=== PATIENT | male | born 1940 | race Caucasian/White ===

== ENCOUNTER → 2016-11-13 | Outpatient (CLI) | payer BC ==
[~2016-11-13] MED LIST: ASPCH81X PO; CALC200T PO; LORA10CA2 PO; MULT-506 PO; NIAC500T8 PO; NUTRTAB48 PO; OMEG10007 PO; OXYM0.0592 NAE; SIMV80TA2 PO
[2016-11-13 09:55] LABS: CALCIUM 8.5 mg/dl (8.5-10.1)
[2016-11-13 10:00] LABS: ALT/SGPT 26 U/L (12-78); AST/SGOT 15 U/L (15-37); BLOOD UREA NITROGEN 11 mg/dl (7-18); BUN/CREATININE RATIO 12.4 (10-20); CARBON DIOXIDE 25 mmol/L (21-32); CHLORIDE 110 mmol/L (98-107); CHOLESTEROL 189 mg/dl (0-200); CREATININE 0.87 mg/dl (0.60-1.40); GLUCOSE 105 mg/dl (70-99); POTASSIUM 4.2 mmol/L (3.5-5.1); SODIUM 143 mmol/L (136-145); TRIGLYCERIDES 96 mg/dl (0-150); VERY LOW DENSITY LIPOPROT CALC 19 mg/dl
[2016-11-13 10:06] LABS: CHOLESTEROL/HDL RATIO 4.1; HDL CHOLESTEROL 46 mg/dl; LDL CHOLESTEROL CALCULATED 124 mg/dl
== END | disposition home or self-care (01) ==
LOC: C.LAB1850 08:16
PROVIDERS: ATTEND Internal Medicine Cardiovascular Disease
DX: E78.00 Pure hypercholesterolemia, unspecified (principal); R73.03 Prediabetes

== ENCOUNTER → 2017-04-28 | Outpatient (CLI) | payer BC ==
[2017-04-28 09:54] LABS: ESTIMATED AVERAGE GLUCOSE 123 mg/dl; HA1C FLAG Normal (Normal)
[2017-04-28 09:55] LABS: ALT/SGPT 27 U/L (12-78); AST/SGOT 16 U/L (15-37); BLOOD UREA NITROGEN 11 mg/dl (7-18); BUN/CREATININE RATIO 12.5 (10-20); CALCIUM 8.7 mg/dl (8.5-10.1); CARBON DIOXIDE 26 mmol/L (21-32); CHLORIDE 108 mmol/L (98-107); CHOLESTEROL 200 mg/dl (0-200); GLUCOSE 109 mg/dl (70-99); POTASSIUM 4.1 mmol/L (3.5-5.1); SODIUM 141 mmol/L (136-145); TRIGLYCERIDES 115 mg/dl (0-150); VERY LOW DENSITY LIPOPROT CALC 23 mg/dl
[2017-04-28 10:00] LABS: CHOLESTEROL/HDL RATIO 4.7; HDL CHOLESTEROL 43 mg/dl; LDL CHOLESTEROL CALCULATED 134 mg/dl
== END | disposition home or self-care (01) ==
LOC: C.LAB1850 08:07
PROVIDERS: ATTEND Internal Medicine
DX: Z00.00 Encounter for general adult medical examination without abnormal findings (principal); R73.03 Prediabetes; Z86.39 Personal history of other endocrine, nutritional and metabolic disease

== ENCOUNTER → 2017-10-25 | Outpatient (CLI) | payer BC ==
[2017-10-25 10:28] LABS: ALT/SGPT 24 U/L (12-78); AST/SGOT 18 U/L (15-37); BLOOD UREA NITROGEN 12 mg/dl (7-18); CALCIUM 8.2 mg/dl (8.5-10.1); CARBON DIOXIDE 26 mmol/L (21-32); CHOLESTEROL 170 mg/dl (0-200); CREATININE 0.84 mg/dl (0.60-1.40); GLUCOSE 110 mg/dl (70-99); POTASSIUM 4.1 mmol/L (3.5-5.1); SODIUM 142 mmol/L (136-145)
[2017-10-25 10:32] LABS: LDL CHOLESTEROL CALCULATED 114 mg/dl
== END | disposition home or self-care (01) ==
LOC: C.LAB1850 08:56
PROVIDERS: ATTEND Internal Medicine
DX: E78.00 Pure hypercholesterolemia, unspecified (principal); I10 Essential (primary) hypertension; R73.03 Prediabetes

== ENCOUNTER 2023-08-01 10:11 | Inpatient (IN) ==
--- NOTE | 2023-08-01 10:32 | Emergency Department Note ---
Impression & Plan Acute hypoxic respiratory failure, COVID-19, SOB (shortness of breath) ED Provider Note NAME: WILFRED COLBERT AGE: 82 SEX: M : 1940 ARRIVES VIA: Ambulance INFORMANT: Patient ED PROVIDER(S): Carlos Macedo DO CHIEF COMPLAINT: shortness of breath HPI: Patient is an 82-year-old gentleman who presents to the ER who was a previous smoker with past medical history of hypertension and prediabetes and hyperlipidemia for shortness of breath. Symptoms started this past . Cough, congestion, and runny nose. He notes he has been using his wifes oxygen at home. Family provides additional history and notes he has been very weak and rundown. Denies any chest pain, belly pain, nausea, vomiting, or diarrhea. No dysuria, urgency, or frequency. No history of COPD or CAD. ADDITIONAL HISTORY OBTAINED: Per HPI Chronic Medical/Social Conditions Affecting Care: Per HPI PAST MEDICAL HISTORY:See Below PAST SURGICAL HISTORY:See Below FAMILY HISTORY:See Below SOCIAL HISTORY:See Below HOME MEDICATIONS:See Below ALLERGIES:See Below VITALS:See Below PHYSICAL EXAMINATION: GENERAL: Sitting up in bed, alert, ill-appearing, disheveled, moderate distress EYE EXAM: normal conjunctiva. OROPHARYNX: mucous membranes are moist NECK: supple, no nuchal rigidity, no adenopathy, non-tender LUNGS: Faint wheezing bilaterally. Normal chest wall mechanics HEART: no murmurs, S1 normal and S2 normal ABDOMEN: abdomen soft, non-tender, normo-active bowel sounds, no masses, no rebound or guarding. BACK: Back is symmetrical on inspection and there is no deformity, no midline tenderness, no CVA tenderness. SKIN: no rashes and no bruising UPPER EXTREMITIES: upper extremities are grossly normal. LOWER EXTREMITIES: No pitting edema. Calves are equal bilaterally NEURO EXAM: Normal sensorium, cranial nerves II-XII grossly intact, normal speech, no gross weakness of arms, no gross weakness of legs. MEDICAL DECISION MAKING: Patient is an 82-year-old male who presents the ER for the above-stated complaint. IV was established blood work was obtained. Labs show no significant leukocytosis or anemia. Mild thrombocytopenia at 114. BMP with mild hyponatremia at 130. LFTs was unremarkable. Troponin was negative. CRP 3.9. Pro-Kavon was normal. Patient was positive for COVID. Patient was hypoxic and remained on nasal cannula throughout his stay. Was given neb treatments. Chest x-ray with subtle infiltrates but with the unremarkable Pro-Kavon I favor this secondary to COVID. Will defer to the hospitalist. Patient was given IV fluids updated bedside and will be admitted for further workup. Consults/Care Managements Discussions: Per [facility] Triage Nursing notes reviewed. Limited review of prior medical records performed Vital Signs: reviewed and remarkable for hypoxic Differential diagnosis: Differential diagnoses includes but is not limited to pneumonia, bronchitis, COPD/Asthma exacerbation, pneumothorax, pulmonary embolism, congestive heart failure, acute coronary syndrome ER treatment provided: See below Diagnostics interpreted by me include EKG and cardiac monitoring as listed below: -Cardiac Monitoring: An order was placed for continuous cardiac monitoring. The monitor shows a rate of 101 with sinus rhythm. -ECG: Sinus tachycardia rate of 104 Left axis Right bundle branch block QTc 497 Septal Q waves -Laboratory studies:Interpreted by me as stated above in MDM and shown below. Imaging studies: Xrays: As interpreted by me: Portable AP upright 1 view of the chest shows patchy infiltrates CTs show: none Procedures:none Critical Care: I have personally spent 35 minutes of critical care time in the direct management of this patient. This includes bedside care, interpretation of diagnostic studies, and testing, discussion with consultants, patient, and family members, and other required patient management activities. This 35 minutes is in excess of all separately billable procedures. Past Med/Surg History Medical History Hypercholesterolemia Hypertension Osteoarthritis Prediabetes Venom-induced anaphylaxis Surgical History H/O knee surgery Family History Uncle Myocardial infarction Other No pertinent family history Denies family history of Ovarian cancer Prostate cancer Breast cancer Colorectal cancer Social History Smoking Status: Former smoker Tobacco Type: Cigarettes Second Hand Exposure: No; Do You Dip or Chew Tobacco: Yes (two dips a day); Hx Alcohol Use: Yes (he takes two shot a day) Alcohol type: hard liquor Alcohol Intake Frequency: 4 or More x per/Week Hx Substance Use: No Preferred Language: Bengali Communication Ability: Effective Visual Impairment: No Limitations Hearing Ability: Normal Life Consultant Required: No Beliefs That Will Affect Care: None marital status: / current occupational status: retired Feels Safe at Home: Yes Childhood Exposure to Second-Hand Smoke: Yes Dental Care, Regularly: No Physical Activity Frequency: 1-2 Times per Week Seatbelt Use: sometimes Sunscreen Use: No Allergies Allergies Allergy/AdvReac Type Severity Reaction Status Date / Time amoxicillin Allergy Severe Hives Verified 08/01/23 12:52 ampicillin Allergy Severe Hives Verified 08/01/23 12:52 tetanus toxoid, adsorbed Allergy Severe Rash, Verified 08/01/23 12:52 swelling Horse/Equine Containing Allergy Mild Unknown Unverified 08/01/23 12:52 Products Penicillins Allergy Mild Unknown Unverified 08/01/23 12:52 venom-honey bee AdvReac Bee Verified 08/01/23 12:52 stings" = head feels funny Home Meds Home Medications Medication Instructions Recorded Confirmed aspirin 81 mg tablet,delayed 81 mg PO DAILY 03/13/19 08/01/23 release (Adult Low Dose Aspirin) omega-3 fatty acids 1,000 mg 1,000 mg PO DAILY 03/13/19 08/01/23 capsule (Fish Oil Concentrate) calcium carbonate 200 mg calcium 200 mg PO BID PRN Indigestion 09/29/22 08/01/23 (500 mg) chewable tablet (Tums) diphenhydramine HCl 25 mg capsule 25 mg PO DAILY PRN Allergy Symptoms 09/29/22 08/01/23 (Benadryl) glucosamine-chondroitin 250 mg-200 2 tab PO DAILY 09/29/22 08/01/23 mg tablet (Osteo Bi-Flex) naproxen sodium 220 mg capsule 440 mg PO BID PRN Pain 09/29/22 08/01/23 (Aleve) calcium carbonate 600 mg-vitamin 2 tab PO DAILY 08/01/23 08/01/23 D3 20 mcg (800 unit) chewable tablet (Caltrate 600 plus D) Previous Rx's Medication Instructions Recorded albuterol sulfate 90 mcg/actuation 1 - 2 puff inhalation Q4H PRN 09/29/22 aerosol inhaler (ProAir HFA) shortness of breath #6.7 grams epinephrine 0.3 mg/0.3 mL 0.3 mg (0.3 mL) IM UD #1 ea 09/29/22 injection, auto-injector atorvastatin 80 mg tablet 80 mg PO QPM #90 tabs 03/24/23 pantoprazole 40 mg tablet,delayed 40 mg PO DAILY #30 tabs 06/24/23 release (Protonix) Results & Data (ED) Vital Signs Vital Signs - 24 hr 08/01/23 10:06 08/01/23 10:06 08/01/23 10:15 Temperature 36.9 C Temperature Source Oral Pulse Rate 104 H Pulse Rate from SpO2 Sensor Pulse Rhythm Regular Pulse Strength Normal Respiratory Rate 22 Respiratory Effort / Characteristics Spontaneous Spontaneous Respiratory Depth Normal Shallow Respiratory Pattern Regular Regular Blood Pressure 145/90 H Blood Pressure Mean 108 Blood Pressure Position Sitting Pulse Oximetry 96 88 L Oxygen Delivery Method Room Air Room Air Nasal Cannula Oxygen Flow Rate 0 Sepsis Recent Fever Within 48 Hours No Sepsis New/Unexplained Change in Mental Status No Sepsis Action Taken by Nursing No Action Required Oxygen Flow Rate - Titration 2 Pulse Oximetry Post Tiitration 95 08/01/23 10:17 08/01/23 10:22 08/01/23 11:00 Temperature Temperature Source Pulse Rate 111 H 107 H Pulse Rate from SpO2 Sensor Pulse Rhythm Pulse Strength Respiratory Rate 17 Respiratory Effort / Characteristics Respiratory Depth Respiratory Pattern Blood Pressure 132/76 133/71 Blood Pressure Mean 94 90 Blood Pressure Position Pulse Oximetry 95 Oxygen Delivery Method Nasal Cannula Oxygen Flow Rate 2 Sepsis Recent Fever Within 48 Hours Sepsis New/Unexplained Change in Mental Status Sepsis Action Taken by Nursing Oxygen Flow Rate - Titration Pulse Oximetry Post Tiitration 08/01/23 11:00 08/01/23 11:10 08/01/23 11:16 Temperature Temperature Source Pulse Rate 97 H 103 H Pulse Rate from SpO2 Sensor 99 H 104 H Pulse Rhythm Pulse Strength Respiratory Rate 30 H 29 H Respiratory Effort / Characteristics Respiratory Depth Respiratory Pattern Blood Pressure Blood Pressure Mean Blood Pressure Position Pulse Oximetry 95 96 95 Oxygen Delivery Method Nasal Cannula Oxygen Flow Rate 2 Sepsis Recent Fever Within 48 Hours Sepsis New/Unexplained Change in Mental Status Sepsis Action Taken by Nursing Oxygen Flow Rate - Titration Pulse Oximetry Post Tiitration 08/01/23 11:20 08/01/23 11:30 08/01/23 11:30 Temperature Temperature Source Pulse Rate 103 H 101 H Pulse Rate from SpO2 Sensor 103 H 103 H Pulse Rhythm Pulse Strength Respiratory Rate 18 18 Respiratory Effort / Characteristics Respiratory Depth Respiratory Pattern Blood Pressure 115/59 L Blood Pressure Mean 75 Blood Pressure Position Pulse Oximetry 95 94 Oxygen Delivery Method Oxygen Flow Rate Sepsis Recent Fever Within 48 Hours Sepsis New/Unexplained Change in Mental Status Sepsis Action Taken by Nursing Oxygen Flow Rate - Titration Pulse Oximetry Post Tiitration 08/01/23 11:40 08/01/23 11:50 08/01/23 12:00 Temperature Temperature Source Pulse Rate 107 H 104 H Pulse Rate from SpO2 Sensor 106 H 104 H Pulse Rhythm Pulse Strength Respiratory Rate 22 25 H Respiratory Effort / Characteristics Respiratory Depth Respiratory Pattern Blood Pressure 115/66 Blood Pressure Mean 82 Blood Pressure Position Pulse Oximetry 95 95 Oxygen Delivery Method Oxygen Flow Rate Sepsis Recent Fever Within 48 Hours Sepsis New/Unexplained Change in Mental Status Sepsis Action Taken by Nursing Oxygen Flow Rate - Titration Pulse Oximetry Post Tiitration 08/01/23 12:00 08/01/23 12:10 08/01/23 12:20 Temperature Temperature Source Pulse Rate 102 H 101 H 99 H Pulse Rate from SpO2 Sensor 98 H 101 H 99 H Pulse Rhythm Pulse Strength Respiratory Rate 19 25 H 21 Respiratory Effort / Characteristics Respiratory Depth Respiratory Pattern Blood Pressure Blood Pressure Mean Blood Pressure Position Pulse Oximetry 94 95 95 Oxygen Delivery Method Oxygen Flow Rate Sepsis Recent Fever Within 48 Hours Sepsis New/Unexplained Change in Mental Status Sepsis Action Taken by Nursing Oxygen Flow Rate - Titration Pulse Oximetry Post Tiitration Laboratory Data 08/01/23 10:20 08/01/23 10:20 Lab Results 08/01/23 Range/Units 10:20 WBC 9.80 (4.8-10.8) K/ul RBC 4.61 L (4.70-6.10) M/uL Hgb 14.3 (14.0-18.0) g/dl Hct 41.5 L (42.0-52.0) % MCV 90.0 (80.0-100.0) fL MCH 31.0 (25.0-34.0) pg MCHC 34.5 (32.0-36.0) g/dL RDW Std Deviation 42.5 (36.4-46.3) fL RDW Coeff of Shawn 12.9 (11.5-14.5) % Plt Count 114 L (130-400) K/uL MPV 8.8 L (9.4-12.4) fL Immature Gran % (Auto) 0.4 % Neut % (Auto) 81.5 % Lymph % (Auto) 6.4 % [place] % (Auto) 11.5 % Eos % (Auto) 0.0 % Baso % (Auto) 0.2 % Neut # (Auto) 7.98 H (1.40-6.50) K/uL Lymph # (Auto) 0.63 L (1.20-3.40) K/uL [place] # (Auto) 1.13 H (0.11-0.59) K/uL Eos # (Auto) 0.00 (0.00-0.50) K/uL Baso # (Auto) 0.02 (0.00-0.20) K/uL Immature Gran # (Auto) 0.04 (0.01-0.20) K/uL Sodium 130 L (136-145) mmol/L Potassium 4.1 (3.5-5.1) mmol/L Chloride 98 (98-107) mmol/L Carbon Dioxide 24 (21-32) mmol/L Anion Gap 8 (3-11) BUN 12 (6-23) mg/dl Creatinine 0.79 (0.6-1.4) mg/dl Est Cr Clr Drug Dosing 76.3 ml/min Est GFR ( Amer) 95.6 ml/min Est GFR (Non-Af Amer) 82.5 ml/min BUN/Creatinine Ratio 15.2 (10-20) Glucose 175 H (70-99(Fasting)) mg/dl Osmolality 276 L (280-300) mOsm/kg Calcium 8.1 L (8.6-10.3) mg/dl Magnesium 1.6 L (1.7-2.4) mg/dl Ferritin 339.2 (8-388) ng/ml Total Bilirubin 1.1 H (0.2-1.0) mg/dl AST 27 (13-39) U/L ALT 15 (7-52) U/L Alkaline Phosphatase 52 (34-104) U/L Troponin I High Sens 4.5 (0-20) pg/ml C-Reactive Protein 3.96 H (0-0.5) mg/dl B-Natriuretic Peptide 18 (0-100) pg/ml Total Protein 6.5 (6.0-8.3) gm/dl Albumin 3.8 (3.4-5.0) gm/dl Globulin 2.7 (2.5-4.0) gm/dl Albumin/Globulin Ratio 1.4 (0.9-2) Lipase 71 (11-82) U/L Procalcitonin 0.07 (0-0.5) ng/ml Adenovirus (PCR) Not Detected (NotDetected) B. pertussis DNA (PCR) Not Detected (NotDetected) B.parapertussis DNA PCR Not Detected (NotDetected) C. pneumoniae DNA (PCR) Not Detected (NotDetected) Coronavirus OC43 (PCR) Not Detected (NotDetected) Coronavirus HKU1 (PCR) Not Detected (NotDetected) Coronavirus 229E (PCR) Not Detected (NotDetected) SARS-CoV-2 (PCR) DETECTED A (NotDetected) Coronavirus NL63 (PCR) Not Detected (NotDetected) Human Metapneumovir PCR Not Detected (NotDetected) Influenza Type A (PCR) Not Detected (NotDetected) Influenza Type B (PCR) Not Detected (NotDetected) M. pneumoniae (PCR) Not Detected (NotDetected) Parainfluenza 1 (PCR) Not Detected (NotDetected) Parainfluenza 2 (PCR) Not Detected (NotDetected) Parainfluenza 3 (PCR) Not Detected (NotDetected) Parainfluenza 4 (PCR) Not Detected (NotDetected) RSV (PCR) Not Detected (NotDetected) Entero/Rhino (PCR) Not Detected (NotDetected) Administered Medications Albuterol (Albut/Ipratrop 3mg/0.5mg Neb 3 Ml Vial) 3 ml NEB QIDR CHULA; Protocol Stop: 08/31/23 12:49 Last Admin: 08/01/23 14:46 Dose: 3 ml Documented By: [id number] Admin: 08/01/23 12:59 Dose: 3 ml Documented By: FILIPE Insulin Aspart (Insulin Aspart Per Unit Charge) 0 units SC ACHS [facility] Stop: 08/31/23 13:14 Last Admin: 08/01/23 14:36 Dose: Not Given Documented By: FILIPE Discontinued Medications Albuterol (Albuterol 0.083% Nebu Soln 3 Ml Vial) 5 mg NEB NOW STA; Protocol Stop: 08/01/23 10:29 Last Admin: 08/01/23 10:51 Dose: 5 mg Documented By: [email or web address] Imaging Data Radiologist's Impression: Chest X-Ray 08/01/23 10:28 XR chest 1V portable CLINICAL HISTORY: Chest pain, nonspecific COMPARISON STUDY: Chest radiograph July 24, 2022. FINDINGS: Low lung volumes are unchanged. There is no pneumothorax or pleural effusion. There is mild interstitial thickening. There may be mild left midlung opacity. Moderate cardiomegaly is unchanged. IMPRESSION: 1. Cardiomegaly. Mild interstitial thickening favors pulmonary edema. Underlying interstitial lung disease would be difficult to exclude. 2. Suspected patchy left midlung opacity. This could be due to overlying soft tissue artifact however a focus of pneumonia could appear similar. Radiographic follow-up is recommended. ACT 112: Negative or not required by law. Electronically signed by: Roberto Briones M.D. 08/01/2023 10:45 AM Discharge Plan Visit Data Chief Complaint: Shortness of Breath/Dyspnea ED Provider: Carlos Macedo Discharge Problem: Acute hypoxic respiratory failure, COVID-19, SOB (shortness of breath) Discharge Instructions Interventions: ED Discharge Assessment Last Done: 08/01/23 15:40
[2023-08-01 10:46] LABS: Basophils # (auto) 0.02 K/uL (0.00-0.20); Basophils % (auto) 0.2 %; Hematocrit (blood only) 41.5 % (42.0-52.0); Hemoglobin 14.3 g/dl (14.0-18.0); Immature Granulocytes # (auto) 0.04 K/uL (0.01-0.20); Immature Granulocytes % (auto) 0.4 %; Lymphocytes # (auto) 0.63 K/uL (1.20-3.40); Lymphocytes % (auto) 6.4 %; Mean Corpuscular Hgb Conc 34.5 g/dL (32.0-36.0); Mean Platelet Volume 8.8 fL (9.4-12.4); Monocytes # (auto) 1.13 K/uL (0.11-0.59); Monocytes % (auto) 11.5 %; Neutrophils # (auto) 7.98 K/uL (1.40-6.50); Neutrophils % (auto) 81.5 %; Platelet Count 114 K/uL (130-400); RDW Coefficient of Variation 12.9 % (11.5-14.5); RDW Standard Deviation 42.5 fL (36.4-46.3); Red Blood Count 4.61 M/uL (4.70-6.10)
--- NOTE | 2023-08-01 10:47 | XRay Report ---
XR chest 1V portable CLINICAL HISTORY: Chest pain, nonspecific COMPARISON STUDY: Chest radiograph July 24, 2022. FINDINGS: Low lung volumes are unchanged. There is no pneumothorax or pleural effusion. There is mild interstitial thickening. There may be mild left midlung opacity. Moderate cardiomegaly is unchanged. IMPRESSION: 1. Cardiomegaly. Mild interstitial thickening favors pulmonary edema. Underlying interstitial lung di sease would be difficult to exclude. 2. Suspected patchy left midlung opacity. This could be due to overlying soft tissue artifact however a focus of pneumonia could appear similar. Radiographic follow-up is recommended. ACT 112: Negative or not required by law. Electronically signed by: Roberto Briones M.D. 08/01/2023 10:45 AM
[2023-08-01] MEDS: ALBUTEROL 0.083% NEBU SOLN 3 ML VIAL NEB STA (10:51)
[2023-08-01 11:30] LABS: Albumin Globulin Ratio 1.4 (0.9-2); Albumin Level 3.8 gm/dl (3.4-5.0); BUN Creatinine Ratio 15.2 (10-20); Bilirubin,Total 1.1 mg/dl (0.2-1.0); Calcium 8.1 mg/dl (8.6-10.3); Creatinine Clr Calc Pharmacy 76.3 ml/min; Est GFR (African American) 95.6 ml/min; Est GFR (Non-African American) 82.5 ml/min; Globulin 2.7 gm/dl (2.5-4.0); Potassium 4.1 mmol/L (3.5-5.1); Total Protein 6.5 gm/dl (6.0-8.3); Troponin I High Sensitivity 4.5 pg/ml (0-20)
[2023-08-01 12:04] LABS: Adenovirus PCR Not Detected (NotDetected); Bordetella parapertussis PCR Not Detected (NotDetected); Bordetella pertussis PCR Not Detected (NotDetected); Chlamydia pneumoniae PCR Not Detected (NotDetected); Coronavirus 229E PCR Not Detected (NotDetected); Coronavirus CoV-2 (COVID19)PCR DETECTED (NotDetected); Coronavirus HKU1 PCR Not Detected (NotDetected); Coronavirus NL63 PCR Not Detected (NotDetected); Coronavirus OC43PCR Not Detected (NotDetected); Human Metapneumovirus PCR Not Detected (NotDetected); Influenza A PCR Not Detected (NotDetected); Influenza B PCR Not Detected (NotDetected); Mycoplasma pneumoniae PCR Not Detected (NotDetected); Parainfluenza Virus 1 PCR Not Detected (NotDetected); Parainfluenza Virus 2 PCR Not Detected (NotDetected); Parainfluenza Virus 3 PCR Not Detected (NotDetected); Parainfluenza Virus 4 PCR Not Detected (NotDetected); Respiratory Syncytial VirusPCR Not Detected (NotDetected); Rhinovirus/Enterovirus PCR Not Detected (NotDetected)
--- NOTE | 2023-08-01 12:26 | History & Physical Report ---
Date of Service August 01, 2023 Assessment & Plan (1) Hypoxia: Plan: -Admit to med/tele on pulse oximetry -Currently hemodynamically stable and stable on 2L NC but without respiratory distress -Presented to the ED with 4 days of progressive congestion, non-productive cough, SOB, and generalized weakness -Noted to be hypoxic on arrival at 88% on RA -No hx of COPD or home O2 use -Noted to be covid 19 + -CXR showing cardiomegaly, mild interstitial pulmonary edema, and left lower lobe opacity suspicious for possible pneumonia -On exam he does have BL crackles and expiratory wheezing -Will obtain BNP, procal, CRP and ferritin on admission -Will wait to start abx until Procal is back -Continue incentive spirometry, flutter therapy -Start QID DuoNebs, prn O2 to keep SpO2 at or above 94% -Q12H Guaifenesin -SQ lovenox for DVT ppx -HH/DMII diet -AM CBC, CMP, mag, PT/INR (2) COVID-19: Plan: -Positive on biofire today -While he is hypoxic, we will wait for the rest of our workup to determine if we need to start steroids -Obtaining procal, CRP, ferritin -If CRP is elevated we will beging steroids as Covid 19 is likely contributing to his hypoxia -If CRP is negative we will likely hold steroids for now and continue to treat his other sources of hypoxia -Rest of care per hypoxia (3) Hyponatremia: Plan: -Sodium of 131 today -Patient reports decreased intake of solids with increased water intake over the past 4 days -Is not on diuretics and is not significantly volume overloaded -Likely caused by decreased sodium intake and increased free water intake -Will start a free water restriction and obtain serum/urine osmolality and urine sodium for further evaluation -Will treat based on workup results -Monitor am electrolytes (4) Thrombocytopenia: Plan: -Platelets of 114 today -No signs of bleeding -AST and ALT are WNL -Likely due to acute viral infection -Monitor daily CBC (5) Bifascicular block: Plan: -Noted on ECG today -Noted to previously have a hx of RBBB on previous ECG's -He denies any recent syncope -Continue to monitor on tele (6) Generalized weakness: Plan: -Likely due to his acute illness and decreased PO intake -Non focal neuro exam -Fall precautions, aspiration precautions -PT/OT consults placed (7) Hypocalcemia: Plan: -Calcium of 8.1 on CMP -Will obtain ionized calcium prior to treating -Monitor am calcium level (8) SOB (shortness of breath): Plan: -Likely multifactorial including Covid 19, possible LLL pneumonia, and mild pulmonary edema on CXR today -Low suspicion for PE at this time has he has been without chest discomfort and hemodynamically stable -High sen trop is WNL and ECG is without acute ST segment or T-wave changes, low suspicion for ACS -Will follow procal, BNP, CRP, and ferritin -Rest of care per hypoxia (9) Hypertension: Plan: -Stable -Not on antihypertensives at home -Continue to monitor (10) Prediabetes: Plan: -Last Hgb A1c in March of 2023 was 5.9 -Patient was noted to be hyperglycemic at 175 on arrival today -For now we will monitor BSG ACHS and start a CF of 50 -Will obtain Hgb A1c tomorrow morning -If patient were to be start on steroids will likely need to escalate his glycemic control regimen -HH/DMII diet Plan The patient was discussed with Dr. Rodriguez at the time of the admission History of Present Illness Chief Complaint: Progressive SOB Primary Care Provider: Rich Mancini MD Ernie is an 82 year old male with a PMH significant for HTN, RBBB, hyperlipidemia, and pre-diabetes who presented to the [facility] ED on 08/01/23 with a chief complaint of progressive SOB over the past 4 days. He was noted to be hypoxic at 88% on RA and tachycardic at 107 BPM but otherwise stable. Labs were significant for a platelet count of 114, lymphocyte count of 0.63, corrected sodium of 175, calcium of 8.1, total bili of 1.1, and full respiratory biofire positive for SARS-CoV-2. Chest xray was read as "1. Cardiomegaly. Mild interstitial thickening favors pulmonary edema. Underlying interstitial lung disease would be difficult to exclude. 2. Suspected patchy left midlung opacity. This could be due to overlying soft tissue artifact however a focus of pneumonia could appear similar. Radiographic follow-up is recommended.". Prior to admission the patient was given an albuterol treatment. At the time of the exam the patient was sitting in bed in no acute distress with his daughters sitting bedside, history was obtained from all. He states that his symptoms of increased congestion, non-productive cough, and increased SOB began on 07/29/23. Symptoms progressed to the point that he was much weaker this am than his baseline. They deny the patient having recent fever or chills. When asked, the patient denies chest pain, hemoptysis, abd pain, nausea, vomiting, diarrhea, dysuria, hematuria, melena, increased LE swelling, and rece nt trauma. He has not been eating as many solid foods over the past 4 days but has been drinking "lots" of water. He did think that the albuterol treatment he received prior to admission improved but didn't resolve his symptoms. We discussed code status, he is a DNR/DNI and would want his Daughters to make medical decisions for him if he cannot make them himself. Please refer to Dr. Rodriguez's attestation for any changes to the treatment plan Allergies Allergy/AdvReac Type Severity Reaction Status Date / Time amoxicillin Allergy Severe Hives Verified 08/01/23 12:52 ampicillin Allergy Severe Hives Verified 08/01/23 12:52 tetanus toxoid, adsorbed Allergy Severe Rash, Verified 08/01/23 12:52 swelling Horse/Equine Containing Allergy Mild Unknown Unverified 08/01/23 12:52 Products Penicillins Allergy Mild Unknown Unverified 08/01/23 12:52 venom-honey bee AdvReac Bee Verified 08/01/23 12:52 stings" = head feels funny Home Medications Medication Instructions Recorded Confirmed Type aspirin 81 mg tablet,delayed 81 mg PO DAILY 03/13/19 08/01/23 History release (Adult Low Dose Aspirin) omega-3 fatty acids 1,000 mg 1,000 mg PO DAILY 03/13/19 08/01/23 History capsule (Fish Oil Concentrate) albuterol sulfate 90 mcg/actuation 1 - 2 puff inhalation Q4H PRN 09/29/22 08/01/23 Rx aerosol inhaler (ProAir HFA) shortness of breath #6.7 grams calcium carbonate 200 mg calcium 200 mg PO BID PRN Indigestion 09/29/22 08/01/23 History (500 mg) chewable tablet (Tums) diphenhydramine HCl 25 mg capsule 25 mg PO DAILY PRN Allergy Symptoms 09/29/22 08/01/23 History (Benadryl) epinephrine 0.3 mg/0.3 mL 0.3 mg (0.3 mL) IM UD #1 ea 09/29/22 08/01/23 Rx injection, auto-injector glucosamine-chondroitin 250 mg-200 2 tab PO DAILY 09/29/22 08/01/23 History mg tablet (Osteo Bi-Flex) naproxen sodium 220 mg capsule 440 mg PO BID PRN Pain 09/29/22 08/01/23 History (Aleve) atorvastatin 80 mg tablet 80 mg PO QPM #90 tabs 03/24/23 08/01/23 Rx pantoprazole 40 mg tablet,delayed 40 mg PO DAILY #30 tabs 06/24/23 08/01/23 Rx release (Protonix) calcium carbonate 600 mg-vitamin 2 tab PO DAILY 08/01/23 08/01/23 History D3 20 mcg (800 unit) chewable tablet (Caltrate 600 plus D) Past Med/Surg History Medical History Hypercholesterolemia Hypertension Osteoarthritis Prediabetes Venom-induced anaphylaxis Surgical History H/O knee surgery Family History Uncle Myocardial infarction Other No pertinent family history Denies family history of Ovarian cancer Prostate cancer Breast cancer Colorectal cancer Social History Smoking Status: Former smoker Tobacco Type: Cigarettes Second Hand Exposure: No; Do You Dip or Chew Tobacco: Yes (two dips a day); Hx Alcohol Use: Yes Alcohol type: hard liquor Alcohol Intake Frequency: 4 or More x per/Week Hx Substance Use: No Preferred Language: Cook Islander Communication Ability: Effective Visual Impairment: No Limitations Hearing Ability: Normal Gas Brazer Required: No Beliefs That Will Affect Care: None marital status: / Current Living Situation: Alone Current Living Situation Comment: Patient states he lives alone, but also states he used his 's home O2 current occupational status: retired Other Information That Helps Us Care for You: No Feels Safe at Home: Yes Safety Concerns: Feels Safe At This Time Childhood Exposure to Second-Hand Smoke: Yes Dental Care, Regularly: No Physical Activity Frequency: 1-2 Times per Week Seatbelt Use: sometimes Sunscreen Use: No Assistive Devices: None Physical Exam Physical Exam: Physical Exam: General: In no acute distress, stated age, non-toxic appearing HEENT: Normocephalic, atraumatic, no scleral icterus, pupils around round, symmetrical, and reactive to light, dry mucus membranes, negative JVD, trachea midline, no thyromegaly Chest/Pulm: No respiratory distress, symmetrical chest expansion, crackles noted in the BL lower lung rapp with expiratory wheezing in the BL mid and upper lung rapp Cardiac: RRR, no murmurs noted Abdomen: Negative for ascites and bruising, normoactive bowel sounds, soft, non-tender to palpation throughout Musculoskeletal: Symmetrical and without signs of acute trauma, upper and lower extremities with full ROM, no atrophy, spasticity, or flaccidity Extremities: Radial, dorsalis pedis, and posterior tibial pulses are intact and symmetrical, no edema noted in the BL LE's Skin: Warm, dry, no rashes , lesions, or scars noted Neuro: Alert and oriented to person, place, month, year, and president, no focal defects, no tremors noted Psych: No acute distress, calm and cooperative during the exam Results & Data Results & Data Vital Signs (Past 12 Hours) Vital Signs Temp Pulse Resp BP Pulse Ox O2 Del Method O2 Flow Rate 08/01/23 11:16 95 Nasal Cannula 2 08/01/23 10:22 107 H 08/01/23 10:17 111 H 17 132/76 95 Nasal Cannula 2 08/01/23 10:15 88 L Nasal Cannula 0 08/01/23 10:06 Room Air 08/01/23 10:06 36.9 C 104 H 22 145/90 H 96 Room Air Laboratory Results Abnormal lab results 08/01/23 Range/Units 10:20 RBC 4.61 L (4.70-6.10) M/uL Hct 41.5 L (42.0-52.0) % Plt Count 114 L (130-400) K/uL MPV 8.8 L (9.4-12.4) fL Neut # (Auto) 7.98 H (1.40-6.50) K/uL Lymph # (Auto) 0.63 L (1.20-3.40) K/uL Kay # (Auto) 1.13 H (0.11-0.59) K/uL Sodium 130 L (136-145) mmol/L Glucose 175 H (70-99(Fasting)) mg/dl Calcium 8.1 L (8.6-10.3) mg/dl Total Bilirubin 1.1 H (0.2-1.0) mg/dl SARS-CoV-2 (PCR) DETECTED A (NotDetected) Diagnostic Findings Chest X-Ray 08/01/23 10:28 XR chest 1V portable CLINICAL HISTORY: Chest pain, nonspecific COMPARISON STUDY: Chest radiograph July 24, 2022. FINDINGS: Low lung volumes are unchanged. There is no pneumothorax or pleural effusion. There is mild interstitial thickening. There may be mild left midlung opacity. Moderate cardiomegaly is unchanged. IMPRESSION: 1. Cardiomegaly. Mild interstitial thickening favors pulmonary edema. Underlying interstitial lung disease would be difficult to exclude. 2. Suspected patchy left midlung opacity. This could be due to overlying soft tissue artifact however a focus of pneumonia could appear similar. Radiographic follow-up is recommended. ACT 112: Negative or not required by law. Electronically signed by: Roberto Briones M.D. 08/01/2023 10:45 AM ECG Additional Comments: sinus tachycardia with new bifasicular block Code Status & VTE Plan Code Status DNR/DNI Supervising Physician Co-Signing Physician Notes I personally saw and examined the patient. I verified all newman points and agree with Ricardo Edmondson PA-C with the following exceptions and/or additions: 82 year old male presents to the ER with shortness of breath and hypoxia. Feeling much improved since admission and placed on oxygen. He is mainly concerned about the Superbowl currently. Coughing up thick sputum. Generalized weakness. Diarrhea today. O/E A&Ox3, HS RRR, no murmurs, No respiratory distress, Chest rhonchi throughout, no wheezing, Abdo SNT, no CVA tenderness A/P COVID / hypoxia - procalcitonin negative, sputum culture pending but suspect just COVID rather than bacterial. Dexamethasone + Remdesivir recommend. PG Care Time/CCT Total # of Minutes Spent Total Time Spent with Patient: Total time spent is greater than 50% in coordination of care (as documented) at patient's floor/unit and/or counseling patient: [place] [address] INT INP/OBS CARE MIN Patient Type Established Medical Decision Making High Complexity Diagnoses Hypoxia R09.02 COVID-19 U07.1 Hyponatremia E87.1 Thrombocytopenia D69.6 Bifascicular block I45.2 Generalized weakness R53.1 Hypocalcemia E83.51 SOB (shortness of breath) R06.02 Hypertension I10 Prediabetes R73.03
[2023-08-01] MEDS ORDERED: GLUCOSE 10 TAB/TUBE PO PRN (12:58)
[2023-08-01] MEDS ORDERED: GLUCAGON FOR INJ 1 MG VIAL SQ PRN (12:58)
[2023-08-01] MEDS ORDERED: CARBOHYDRATES FOR HYPOGLYCEMIA PO PRN (12:58)
[2023-08-01] MEDS ORDERED: DEXTROSE 50% 50 ML SYRINGE IV PRN (12:58)
[2023-08-01] MEDS ORDERED: GLUCOSE 40% GEL 15 GM TUBE PO PRN (12:58)
[2023-08-01] MEDS: ALBUT/IPRATROP 3MG/0.5MG NEB 3 ML VIAL NEB SCH (12:59)
[2023-08-01 13:17] LABS: Magnesium 1.6 mg/dl (1.7-2.4)
[2023-08-01 13:23] LABS: C Reactive Protein 3.96 mg/dl (0-0.5)
[2023-08-01 13:42] LABS: Ferritin 339.2 ng/ml (8-388)
[2023-08-01] MEDS: INSULIN ASPART PER UNIT CHARGE SC SCH (14:36)
[2023-08-01] MEDS ORDERED: STAT IV/IM STA (15:16)
[2023-08-01] MEDS: DEXAMETHASONE SOD INJ 4 MG/ML VIAL IV STA (15:59)
[2023-08-01] MEDS: CALCIUM GLUCONATE 10% 1,000 MG in SODIUM CHLOR 0.9% MINI-B 50 ML IV ONE (15:59)
[2023-08-01] MEDS: MAGNESIUM SULFATE / D5W 1 GM/100 ML BAG IV SCH (16:21)
[2023-08-01 16:26] LABS: Appearance Urine Clear (Clear); Bilirubin Urine Negative (Negative); Blood Urine Negative (Negative); Color Urine Yellow; Glucose Urine UA Negative (Negative); Ketones Urine Negative (Negative); Leukocyte Esterase Urine Negative (Negative); Nitrite Urine Negative (Negative); Protein Urine Negative (Negative); Specific Gravity Urine 1.017 (1.000-1.030); Urobilinogen Urine Negative (Negative); pH Urine 6.5 (4.5-7.5)
[2023-08-01] MEDS: SODIUM CHLORIDE 0.9% 1,000 ML IV SCH ×2 (17:16→17:17)
[2023-08-01] MEDS: REMDESIVIR 200 MG in SODIUM CHLORIDE 0.9% 210 ML IV ONE (17:58)
[2023-08-01] MEDS: guaiFENesin 600 MG TABCR PO SCH (21:09)
[2023-08-01] MEDS: ATORVASTATIN 40 MG TAB PO SCH (21:09)
[2023-08-01] MEDS: ENOXAPARIN INJ 40 MG/0.4 ML SYR SQ SCH (21:09)
[2023-08-02 06:20] LABS: Basophils # (auto) 0.01 K/uL (0.00-0.20); Basophils % (auto) 0.1 %; Hematocrit (blood only) 38.8 % (42.0-52.0); Hemoglobin 13.5 g/dl (14.0-18.0); Immature Granulocytes # (auto) 0.05 K/uL (0.01-0.20); Immature Granulocytes % (auto) 0.5 %; Lymphocytes # (auto) 0.65 K/uL (1.20-3.40); Lymphocytes % (auto) 6.5 %; Mean Corpuscular Hemoglobin 31.1 pg (25.0-34.0); Mean Corpuscular Hgb Conc 34.8 g/dL (32.0-36.0); Mean Corpuscular Volume 89.4 fL (80.0-100.0); Monocytes # (auto) 0.54 K/uL (0.11-0.59); Monocytes % (auto) 5.4 %; Neutrophils % (auto) 87.5 %; Platelet Count 118 K/uL (130-400); RDW Standard Deviation 42.5 fL (36.4-46.3); Red Blood Count 4.34 M/uL (4.70-6.10); White Blood Count 10.05 K/ul (4.8-10.8)
[2023-08-02 06:39] LABS: Albumin Globulin Ratio 1.3 (0.9-2); Albumin Level 3.5 gm/dl (3.4-5.0); BUN Creatinine Ratio 18.2 (10-20); Bilirubin,Total 0.6 mg/dl (0.2-1.0); Creatinine Clr Calc Pharmacy 91.4 ml/min; Est GFR (African American) 102.9 ml/min; Est GFR (Non-African American) 88.8 ml/min; Globulin 2.7 gm/dl (2.5-4.0); Potassium 4.7 mmol/L (3.5-5.1); Total Protein 6.2 gm/dl (6.0-8.3)
[2023-08-02 06:53] LABS: INR 1.1 (0.9-1.1); Prothrombin Time 11.5 Seconds (9.0-12.0)
[2023-08-02 07:39] LABS: Estimated Average Glucose 137 mg/dl; Hemoglobin A1C 6.4 % (4.5-5.6)
[2023-08-02] MEDS: PANTOprazole 40 MG TAB PO SCH (08:32)
[2023-08-02] MEDS: ASPIRIN 81 MG ECTAB PO SCH (08:32)
[2023-08-02] MEDS: dexAMETHasone 6 MG in SYRINGE 0 ML IV SCH (08:33)
[2023-08-02] MEDS ORDERED: DEXAMETHASONE SOD INJ 4 MG/ML VIAL IV SCH (09:00)
[2023-08-02 09:05] LABS: Magnesium 2.2 mg/dl (1.7-2.4)
[2023-08-02] MEDS: REMDESIVIR 100 MG in SODIUM CHLORIDE 0.9% 230 ML IV SCH (12:49)
--- NOTE | 2023-08-02 13:08 | Hospitalist Progress Note ---
Date of Service August 02, 2023 Assessment & Plan (1) COVID-19: Plan: -Positive on biofire, onset of symptoms 07/28 - Currently on 2L NC, wean as able. SpO2 goal > 94% - Continue dexamethasone and remdesivir (first day 08/01) - CXR: cardiomegaly, mild interstitial pulmonary edema, and left lower lobe opacity suspicious for possible pneumonia - negative procal, improvement with treatment for COVID. Will monitor oxygen needs, low threshold for repeat CXR - Continue IS and flutter valve - PRN duonebs - Guaifenesin q12 - PT/OT (2) Hyponatremia: Plan: -Sodium of 131 on admission, likely by increased free water with decreased Na intake - FR 1800mL - Recheck this am was 139 (3) Thrombocytopenia: Plan: -Platelets of 114 on admission, without signs of bleeding -AST and ALT are WNL -Likely due to acute viral infection -today increased to 118 - trend CBC (4) Bifascicular block: Plan: -Noted on ECG on admission -Noted to previously have a hx of RBBB on previous ECG's -He denies any recent syncope -Continue to monitor on tele (5) Generalized weakness: Plan: -Likely due to his acute illness and decreased PO intake -Fall precautions -PT/OT consults placed (6) Hypocalcemia: Plan: -Calcium of 8.1 on CMP -Will obtain ionized calcium prior to treating -Monitor am calcium level (7) Prediabetes: Plan: -Last Hgb A1c in March of 2023 was 5.9, recheck 08/02 was 6.4 -BSG ACHS and start a CF of 50 - Monitor for tighter control given steroid use Plan Dispo: continued inpatient stay DVT proh: Lovenox Daughter updated at bedside Admission and Anticipated Discharge Date Admission Date: August 01, 2023 Subjective Patient sitting in bed eating lunch. States that he feels much better than yesterday. Reports living at home alone, does have a walker but does not use it. Is currently requiring oxygen but does not feel short of breath. States his cough has been more productive today, coughing up yellow phlegm. Denies chest pain. Good appetite, moving bowels Tele - SR with IVCD 60s Review of Systems Review of Systems: All systems reviewed & are unremarkable except as noted in Subjective Physical Exam Physical Exam: General: NAD, VS as above Resp: normal respiratory effort, expiratory wheeze worse in bases CV: RRR, no murmur, Abd: normal bowel sounds, non tender, no hepatosplenomegaly Extremities: Moves all extremities, no edema Neuro: A&O x3, Results & Data Results & Data Vital Signs (Past 12 Hours) Vital Signs Temp Pulse Pulse Resp BP BP Pulse Ox 08/02/23 11:42 36.7 C 59 L 18 110/71 96 08/02/23 10:56 08/02/23 09:43 68 08/02/23 09:08 36.8 C 65 18 121/77 97 08/02/23 07:28 54 L 08/02/23 03:00 56 L 20 102/64 94 08/02/23 02:00 57 L 18 120/73 97 08/02/23 01:00 60 17 118/66 97 O2 Del Method O2 Flow Rate 08/02/23 11:42 Nasal Cannula 08/02/23 10:56 Nasal Cannula 2 08/02/23 09:43 08/02/23 09:08 Nasal Cannula 2 08/02/23 07:28 08/02/23 03:00 Nasal Cannula 3 08/02/23 02:00 Nasal Cannula 3 08/02/23 01:00 Nasal Cannula 3 Laboratory Results CBC, chemistry, hemoglobin A1c reviewed Diagnostic Findings Chest x-ray reviewed PG Care Time/CCT Total # of Minutes Spent Total Time Spent with Patient: Total time spent is greater than 50% in coordination of care (as documented) at patient's floor/unit and/or counseling patient: Coding Level of Care Code 06398 SUB INP/OBS CARE 2/35MIN Diagnoses COVID-19 U07.1 Hyponatremia E87.1 Thrombocytopenia D69.6 Bifascicular block I45.2 Generalized weakness R53.1 Hypocalcemia E83.51 Prediabetes R73.03
[2023-08-02] MEDS: ALBUT/IPRATROP 3MG/0.5MG NEB 3 ML VIAL NEB PRN (13:18)
--- NOTE | 2023-08-02 19:07 | Electrocardiogram Report ---
Test Reason : Blood Pressure : / mmHG Vent. Rate : 104 BPM Atrial Rate : 104 BPM P-R Int : 154 ms QRS Dur : 144 ms QT Int : 378 ms P-R-T Axes : 023 -48 004 degrees QTc Int : 497 ms Sinus tachycardia Right bundle branch block Left anterior fascicular block Bifascicular block Minimal voltage criteria for LVH, may be normal variant ( R in aVL ) Abnormal ECG When compared with ECG of 05-DEC-2003 12:00, Vent. rate has increased BY 44 BPM T wave inversion now evident in Anterior leads Confirmed by Anselmo Ellsworth ([id number]) on 08/02/2023 7:07:24 PM Referred By: REFERRED SELF Confirmed By:Anselmo Ellsworth
[2023-08-03 05:24] LABS: Basophils # (auto) 0.02 K/uL (0.00-0.20); Basophils % (auto) 0.2 %; Hematocrit (blood only) 38.5 % (42.0-52.0); Immature Granulocytes # (auto) 0.04 K/uL (0.01-0.20); Immature Granulocytes % (auto) 0.4 %; Lymphocytes # (auto) 1.01 K/uL (1.20-3.40); Lymphocytes % (auto) 9.2 %; Mean Corpuscular Hemoglobin 30.4 pg (25.0-34.0); Mean Corpuscular Hgb Conc 33.8 g/dL (32.0-36.0); Mean Corpuscular Volume 90.2 fL (80.0-100.0); Mean Platelet Volume 9.6 fL (9.4-12.4); Monocytes # (auto) 1.04 K/uL (0.11-0.59); Monocytes % (auto) 9.5 %; Neutrophils # (auto) 8.81 K/uL (1.40-6.50); Neutrophils % (auto) 80.7 %; Platelet Count 123 K/uL (130-400); RDW Coefficient of Variation 13.1 % (11.5-14.5); RDW Standard Deviation 43.2 fL (36.4-46.3); Red Blood Count 4.27 M/uL (4.70-6.10); White Blood Count 10.92 K/ul (4.8-10.8)
[2023-08-03 05:44] LABS: Albumin Globulin Ratio 1.5 (0.9-2); Albumin Level 3.5 gm/dl (3.4-5.0); BUN Creatinine Ratio 28.6 (10-20); Bilirubin,Total 0.6 mg/dl (0.2-1.0); Calcium 7.8 mg/dl (8.6-10.3); Creatinine Clr Calc Pharmacy 95.8 ml/min; Est GFR (African American) 104.9 ml/min; Est GFR (Non-African American) 90.5 ml/min; Globulin 2.4 gm/dl (2.5-4.0); Potassium 4.2 mmol/L (3.5-5.1); Total Protein 5.9 gm/dl (6.0-8.3)
[2023-08-03] MEDS: ACETAMINOPHEN 325 MG TAB PO PRN (09:21)
--- NOTE | 2023-08-03 10:51 | XRay Report ---
XR chest 1V portable CLINICAL HISTORY: COVID, ?pna TECHNIQUE: Single frontal radiograph of the chest was obtained. Comparison: Comparison is made to chest radiograph 08/01/2023 FINDINGS: No lines and tubes are seen. Cardiomegaly is noted. The aortic arch is calcified. Interstitial thicke girish and left greater than right opacities are similar to prior exam. Possible small left pleural eff usion. IMPRESSION: Redemonstration of interstitial thickening compatible pulmonary edema and airspace opacity which may represent pneumonia. A left effusion cannot be excluded. ACT 112: Negative or not required by law. Electronically signed by: Rio Graham M.D. 08/03/2023 10:50 AM
--- NOTE | 2023-08-03 14:35 | Hospitalist Progress Note ---
Date of Service August 03, 2023 Assessment & Plan (1) COVID-19: Plan: Possible pneumonia due to Covid 19 -Positive on biofire, onset of symptoms 07/28 - Currently on 2L NC, wean as able. SpO2 goal > 94% - Continue dexamethasone and remdesivir (first day 08/01) - 08/01 CXR: cardiomegaly, mild interstitial pulmonary edema, and left lower lobe opacity suspicious for possible pneumonia - Continue IS and flutter valve - PRN duonebs - Guaifenesin q12 - PT/OT Patient with continued O2 needs. CXR repeated 08/03 and stable, afebrile, sputum culture with normal efra and oxygen demands stable. Will hold off on antibiotics for now. - AM CRP (2) Hyponatremia: Plan: -Sodium of 131 on admission, likely by increased free water with decreased Na intake - FR 1800mL - Now 134, AM BMP (3) Thrombocytopenia: Plan: -Platelets of 114 on admission, without signs of bleeding -AST and ALT are WNL -Likely due to acute viral infection -today increased to 123 - trend CBC (4) Bifascicular block: Plan: -Noted on ECG on admission -Noted to previously have a hx of RBBB on previous ECG's -He denies any recent syncope -Continue to monitor on tele (5) Generalized weakness: Plan: -Likely due to his acute illness and decreased PO intake -Fall precautions -PT/OT consults placed - recommend home health at discharge (6) Hypocalcemia: Plan: -Calcium 7.8, 8.2 when corrected for albumin - Currently asymptomatic - Will continue to trend (7) Prediabetes: Plan: -Last Hgb A1c in March of 2023 was 5.9, recheck 08/02 was 6.4 -BSG ACHS and CF decreased to 40 - Monitor for tighter control given steroid use Plan Dispo: continued inpatient stay DVT proh: Lovenox Admission and Anticipated Discharge Date Admission Date: August 01, 2023 Subjective patient sitting in bed, has been ambulating in the room independently. Moving bowels. States that he has gotten shortness of breath with activity. Continues with productive cough. Good appetite. Denies chest pain Feliciano SB/SR 50-60s with IVCD Review of Systems Review of Systems: All systems reviewed & are unremarkable except as noted in HPI & below Physical Exam Physical Exam: General: NAD, VS as above Resp: normal respiratory effort, expiratory wheeze worse in bases CV: RRR, no murmur, Abd: normal bowel sounds, non tender, no hepatosplenomegaly Extremities: Moves all extremities, no edema Neuro: A&O x3, Results & Data Results & Data Vital Signs (Past 12 Hours) Vital Signs Temp Pulse Pulse Resp BP Pulse Ox O2 Del Method 08/03/23 12:35 36.5 C 68 18 103/68 94 Nasal Cannula 08/03/23 11:15 Nasal Cannula 08/03/23 08:41 36.4 C L 56 L 16 132/79 96 Nasal Cannula 08/03/23 07:19 50 L 08/03/23 03:24 36.6 C 60 18 113/69 97 Room Air O2 Flow Rate 08/03/23 12:35 2 08/03/23 11:15 1 08/03/23 08:41 2 08/03/23 07:19 08/03/23 03:24 Laboratory Results CBC and chemistry reviewed PG Care Time/CCT Total # of Minutes Spent Total Time Spent with Patient: Total time spent is greater than 50% in coordination of care (as documented) at patient's floor/unit and/or counseling patient: Coding Level of Care Code 90013 SUB INP/OBS CARE 3/50MIN Diagnoses COVID-19 U07.1 Hyponatremia E87.1 Thrombocytopenia D69.6 Bifascicular block I45.2 Generalized weakness R53.1 Hypocalcemia E83.51 Prediabetes R73.03
[2023-08-04 05:35] LABS: Albumin Globulin Ratio 1.4 (0.9-2); Albumin Level 3.3 gm/dl (3.4-5.0); BUN Creatinine Ratio 32.8 (10-20); Bilirubin,Total 0.5 mg/dl (0.2-1.0); C Reactive Protein 2.65 mg/dl (0-0.5); Calcium 7.4 mg/dl (8.6-10.3); Creatinine Clr Calc Pharmacy 94.4 ml/min; Est GFR (African American) 104.2 ml/min; Est GFR (Non-African American) 89.9 ml/min; Globulin 2.4 gm/dl (2.5-4.0); Potassium 4.2 mmol/L (3.5-5.1); Total Protein 5.7 gm/dl (6.0-8.3)
[2023-08-04 05:41] LABS: Basophils # (auto) 0.01 K/uL (0.00-0.20); Basophils % (auto) 0.1 %; Hematocrit (blood only) 37.5 % (42.0-52.0); Hemoglobin 12.6 g/dl (14.0-18.0); Immature Granulocytes # (auto) 0.07 K/uL (0.01-0.20); Immature Granulocytes % (auto) 0.7 %; Lymphocytes % (auto) 8.5 %; Mean Corpuscular Hemoglobin 30.7 pg (25.0-34.0); Mean Corpuscular Hgb Conc 33.6 g/dL (32.0-36.0); Mean Corpuscular Volume 91.2 fL (80.0-100.0); Mean Platelet Volume 9.7 fL (9.4-12.4); Monocytes # (auto) 1.05 K/uL (0.11-0.59); Monocytes % (auto) 9.9 %; Neutrophils # (auto) 8.59 K/uL (1.40-6.50); Neutrophils % (auto) 80.8 %; Platelet Count 133 K/uL (130-400); RDW Coefficient of Variation 13.1 % (11.5-14.5); RDW Standard Deviation 43.3 fL (36.4-46.3); Red Blood Count 4.11 M/uL (4.70-6.10); White Blood Count 10.62 K/ul (4.8-10.8)
[2023-08-04 11:28] VITALS: TEMP 97.7
--- NOTE | 2023-08-04 13:29 | Discharge Summary ---
Discharge Summary Date of Service August 04, 2023 Notes For Next Care Provider Hgb A1c during visit 6.4 Discharged with 7 days of dexamethasone - not requiring O2 at discharge. Home health arranged Consider repeat BMP after acute illness to monitor Ca and Na Medication Changes From Visit Dexamethason 6mg PO daily x 7 days Admission HPI Per Admitting Provider Ernie is an 82 year old male with a PMH significant for HTN, RBBB, hyperlipidemia, and pre-diabetes who presented to the [facility] ED on 08/01/23 with a chief complaint of progressive SOB over the past 4 days. He was noted to be hypoxic at 88% on RA and tachycardic at 107 BPM but otherwise stable. Labs were significant for a platelet count of 114, lymphocyte count of 0.63, corrected sodium of 175, calcium of 8.1, total bili of 1.1, and full respiratory biofire positive for SARS-CoV-2. Chest xray was read as "1. Cardiomegaly. Mild interstitial thickening favors pulmonary edema. Underlying interstitial lung disease would be difficult to exclude. 2. Suspected patchy left midlung opacity. This could be due to overlying soft tissue artifact however a focus of pneumonia could appear similar. Radiographic follow-up is recommended.". Prior to admission the patient was given an albuterol treatment. At the time of the exam the patient was sitting in bed in no acute distress with his daughters sitting bedside, history was obtained from all. He states that his symptoms of increased congestion, non-productive cough, and increased SOB began on 07/29/23. Symptoms progressed to the point that he was much weaker this am than his baseline. They deny the patient having recent fever or chills. When asked, the patient denies chest pain, hemoptysis, abd pain, nausea, vomiting, diarrhea, dysuria, hematuria, melena, increased LE swelling, and recent trauma. He has not been eating as many solid foods over the past 4 days but has been drinking "lots" of water. He did think that the albuterol treatment he received prior to admission improved but didn't resolve his symptoms. We discussed code status, he is a DNR/DNI and would want his Daughters to make medical decisions for him if he cannot make them himself. Please refer to Dr. Rodriguez's attestation for any changes to the treatment plan Principal Dx & Hospital Course #1 = Principal Diagnosis (1) COVID-19: Possible pneumonia due to Covid 19 -Positive on biofire, onset of symptoms 07/28 - room air At discharge, passed 2 step without oxygen needs - Continue dexamethasone at discharge for total of 10 day course - received remdesivir - 08/01 CXR: cardiomegaly, mild interstitial pulmonary edema, and left lower lobe opacity suspicious for possible pneumonia. Repeat CXR stable, afebrile, CRP decreasing, sputum culture wit normal efra. No evidence for bacterial PNA - Continue IS and flutter valve - Guaifenesin q12 - PT/OT - recommend home health, arranged at discharge (2) Hyponatremia: -Sodium of 131 on admission, likely by increased free water with decreased Na intake - FR 1800mL during inpatient stay - Now stable, pt asymptomatic (3) Thrombocytopenia: -Platelets of 114 on admission, without signs of bleeding -Likely due to acute viral infection Stable 133 at discharge (4) Bifascicular block: -Noted on ECG on admission -Noted to previously have a hx of RBBB on previous ECG's -He denies any recent syncope (5) Generalized weakness: -Likely due to his acute illness and decreased PO intake -PT/OT consults placed - recommend home health at discharge Improving at discharge (6) Hypocalcemia: -Calcium 7.4, 8.0 when corrected for albumin - Currently asymptomatic (7) Prediabetes: -Last Hgb A1c in March of 2023 was 5.9, recheck 08/02 was 6.4 - received short acting insulin while inpatient - defer further outpatient management to PCP Plan Dispo: discharge home with home health Daughter updated at bedside Discharge Exam General: NAD, VS as above Resp: normal respiratory effort, some crackles in left base, improved overall f rom previous CV: RRR, no murmur, Abd: normal bowel sounds, non tender, no hepatosplenomegaly Extremities: Moves all extremities, no edema Neuro: A&O x3, Updated Medication List Medication Instructions Recorded Confirmed Type aspirin 81 mg tablet,delayed 81 mg PO DAILY 03/13/19 08/01/23 History release (Adult Low Dose Aspirin) omega-3 fatty acids 1,000 mg 1,000 mg PO DAILY 03/13/19 08/01/23 History capsule (Fish Oil Concentrate) albuterol sulfate 90 mcg/actuation 1 - 2 puff inhalation Q4H PRN 09/29/22 08/01/23 Rx aerosol inhaler (ProAir HFA) shortness of breath #6.7 grams calcium carbonate 200 mg calcium 200 mg PO BID PRN Indigestion 09/29/22 08/01/23 History (500 mg) chewable tablet (Tums) diphenhydramine HCl 25 mg capsule 25 mg PO DAILY PRN Allergy Symptoms 09/29/22 08/01/23 History (Benadryl) epinephrine 0.3 mg/0.3 mL 0.3 mg (0.3 mL) IM UD #1 ea 09/29/22 08/01/23 Rx injection, auto-injector glucosamine-chondroitin 250 mg-200 2 tab PO DAILY 09/29/22 08/01/23 History mg tablet (Osteo Bi-Flex) atorvastatin 80 mg tablet 80 mg PO QPM #90 tabs 03/24/23 08/01/23 Rx pantoprazole 40 mg tablet,delayed 40 mg PO DAILY #30 tabs 06/24/23 08/01/23 Rx release (Protonix) calcium carbonate 600 mg-vitamin 2 tab PO DAILY 08/01/23 08/01/23 History D3 20 mcg (800 unit) chewable tablet (Caltrate 600 plus D) acetaminophen 325 mg tablet 650 mg (2 x 325 mg) PO Q6H PRN 08/04/23 Rx fever or pain #30 tabs dexamethasone 6 mg tablet 6 mg PO DAILY #7 tabs 08/04/23 Rx guaifenesin 600 mg tablet, 600 mg PO Q12 10 days #20 tabs 08/04/23 Rx extended release 12 hr (Mucinex) Hospital Stay Data Consultations 08/01/23 12:10 ED Decision to Admit Stat Diagnostic Imagining Performed Chest X-Ray 08/01/23 10:28 XR chest 1V portable CLINICAL HISTORY: Chest pain, nonspecific COMPARISON STUDY: Chest radiograph July 24, 2022. FINDINGS: Low lung volumes are unchanged. There is no pneumothorax or pleural effusion. There is mild interstitial thickening. There may be mild left midlung opacity. Moderate cardiomegaly is unchanged. IMPRESSION: 1. Cardiomegaly. Mild interstitial thickening favors pulmonary edema. Underlying interstitial lung disease would be difficult to exclude. 2. Suspected patchy left midlung opacity. This could be due to overlying soft tissue artifact however a focus of pneumonia could appear similar. Radiographic follow-up is recommended. ACT 112: Negative or not required by law. Electronically signed by: Roberto Briones M.D. 08/01/2023 10:45 AM Chest X-Ray 08/03/23 10:09 XR chest 1V portable CLINICAL HISTORY: COVID, ?pna TECHNIQUE: Single frontal radiograph of the chest was obtained. Comparison: Comparison is made to chest radiograph 08/01/2023 FINDINGS: No lines and tubes are seen. Cardiomegaly is noted. The aortic arch is calcified. Interstitial thickening and left greater than right opacities are similar to prior exam. Possible small left pleural effusion. IMPRESSION: Redemonstration of interstitial thickening compatible pulmonary edema and airspace opacity which may represent pneumonia. A left effusion cannot be excluded. ACT 112: Negative or not required by law. Electronically signed by: Rio Graham M.D. 08/03/2023 10:50 AM Pending Results Patient Have Any Pending Studies at Discharge: No Discharge Instructions Given to Patient (Per Discharging Provider) Jac Mac were hospitalized with COVID-19 pneumonia, initially requiring oxygen therapy. You were treated with antiviral and steroids during your stay and made significant improvement. You are not requiring oxygen at discharge. Recommend continuing the incentive spirometer and flutter valve (breathing devices) 6-10 times every hour while you are awake. New medications: - Dexamethsone 6mg every morning for 7 more days, start this 08/05 -We have also been giving you mucinex 600mg twice a day to help with your cough. You can pick this up over the counter and continue it while you are still dealing with a cough. Your HgbA1c showed worsening of your prediabetes, and you should discuss this with your PCP. Keep your follow up appointment with your PCP. Home health services have been arranged. Monitor for shortness of breath, chest pain and fevers. Continue to use your pulse oximeter at home - if you readings are below 88% then you should return to the ER. Total Time Total Time Spent Total Time Spent (In Minutes): Time spend day of discharge 40 minutes including direct patient care, medication reconciliation, documentation, review of labs and images, and coordination of care. Coding Level of Care Code 55440 INP/OBS DISCH >30 MIN Diagnoses COVID-19 U07.1 Hyponatremia E87.1 Thrombocytopenia D69.6 Bifascicular block I45.2 Generalized weakness R53.1 Hypocalcemia E83.51 Prediabetes R73.03
[2023-08-04 14:57] VITALS: BP 102/66; RESP 18; O2SAT 93
[2023-08-04 15:27] VITALS: PULSE 53
== END 2023-08-04 16:35 | disposition home health service (06) | DRG 177 ==
LOC: ED 10:11 → EDINP 12:26 → SUATTDRO 12:26 → 2W 08-02 08:24
DX: Z66 Do not resuscitate; J81.1 Chronic pulmonary edema; U07.1 COVID-19; E78.5 Hyperlipidemia, unspecified; J12.82 Pneumonia due to coronavirus disease 2019; E83.51 Hypocalcemia; Z88.7 Allergy status to serum and vaccine; Z87.891 Personal history of nicotine dependence; I45.2 Bifascicular block; Z79.82 Long term (current) use of aspirin; D69.6 Thrombocytopenia, unspecified; I10 Essential (primary) hypertension; E87.1 Hypo-osmolality and hyponatremia; Z88.1 Allergy status to other antibiotic agents; R73.03 Prediabetes; J96.01 Acute respiratory failure with hypoxia; Z88.0 Allergy status to penicillin